=== PATIENT | male | born 1975 | race Caucasian/White ===

== ENCOUNTER 2023-11-23 07:06 | Inpatient (IN) | payer OTHER, SELFPAY ==
--- NOTE | 2023-10-25 12:26 | CM ---
Patient is scheduled for lumbar spine surgery on 11/23/23. Spoke with patient prior to surgery via telephone. Introduced role of the Orthopedic Navigator. Patient reports that he lives with his and six year old daughter in a multi story home.
There are three steps to enter and a flight of steps to the second floor. He currently functions independently. He has no DME and has never had VN services. PCP is Kenneth Toney.
Discussed orthopedic program, post surgical plans and tentative plan for patient to return home when directed by surgeon. Patient is in agreement with tentative plan and will have support from his when he goes home.
Plan: Orthopedic Navigator will remain available to assist with the care of patient and will reassess discharge needs after surgery.
[2023-11-07 07:54] VITALS: BMI 27.6
[2023-11-07 09:04] LABS: Hematocrit 40.3 % (39.0-52.0); Hemoglobin 13.4 g/dL (13.0-18.0); Mean Corp Hgb Conc. 33.3 g/dL (33.0-37.0); Mean Corpuscular Hgb 29.3 pg (27.0-31.0); Mean Corpuscular Volume 88.2 fL (80.0-94.0); Platelet Count 234 10^3/uL (130-400); Red Blood Cell Count 4.57 10^6/uL (4.70-6.10); Red Cell Dist. Width 12.4 % (11.5-14.5); White Blood Cell Count 6.8 10^3/uL (4.8-10.8)
--- NOTE | 2023-11-07 10:16 | HPS.HSE ---
Family Physician
-
Family Physician: Kenneth Toney
Chief Complaint
-
Lumbar spondylolisthesis and stenosis with neurogenic claudication.
History of Present Illness
The patient is a 48 year old male presenting today for lumbar spondylolisthesis and stenosis with neurogenic claudication. The patient reports significant, progressively worsening low back pain which radiates into his bilateral lower
extremities secondary to these diagnoses. He notes that his current pain greatly interferes with his activities of daily living and is overall impacting his quality of life. He has tried and failed multiple conservative treatment measures in the
past for his pain. These conservative treatment measures include activity modification, self therapeutic exercises, epidural steroid injections, medical management with Tylenol, NSAIDs, and medical marijuana as needed, and the application of ice
and/or heat. Recent MRI findings of the lumbar spine confirmed moderate to severe stenosis at L4-L5 with spondylolisthesis. He was determined to be in need of a L4-L5 laminectomy and posterior spinal fusion. He denies any current complaints today
such as chest pain, shortness of breath, palpitations, nausea, vomiting, diarrhea, lightheadedness, dizziness, sore throat, or fever.
Medical History
Past Medical History
Past Medical History: Reports Other
Additional Past Medical History:
1. Lumbar spondylolisthesis and stenosis with neurogenic claudication.
2. Cervical degenerative disc disease, status post C5-C6 ACDF with Dr. Gutierrez 2015.
3. Hyperlipidemia.
4. Probable obstructive sleep apnea.
5. Chronic dry cough.
6. Colon polyps.
7. Rare migraines.
8. Balance difficulties.
9. Osteoarthritis.
10. Anxiety.
11. Daily alcohol.
12. Cannibis dependence.
Past Surgical History: Reports Other
Additional Past Surgical History:
1. C5-C6 ACDF, 2015, by Dr. Josh Gutierrez.
2. Hydrocelectomy.
3. [place] teeth extraction.
4. Colonoscopy.
Social History
Tobacco: Non-smoker
Alcohol: Daily (Reports, on average, drinking 1 glass of wine nightly with dinner. )
Drug: Marijuana (He uses medical marijuana, on average, daily due to ongoing pain. )
Personal:
Living: With Family (in a 2 story home with a basement. )
Family History
Family History: Not pertinent
Allergies / Home Medications
Allergy/Medication List:
Home medications:
1. Cyanocobalamin 1000 mcg p.o. daily.
2. Duloxetine 60 mg p.o. daily.
3. Medical marijuana 1 unit inhaled daily.
4. Percocet 5/325 mg, 1 tablet p.o. every 6 hours as needed.
5. Pravastatin 40 mg p.o. daily.
Allergies: No known allergies.
Review of Systems
-
A 12 point ROS was completed and negative except as noted: Yes
Physical Exam
Vital Signs
Blood pressure 127/73. Heart rate 72. Respirations 18. Pulse ox 98%.
Height 5 feet, 10 inches. Weight 87.4 kg. BMI 27.6.
Physical Exam
General: Well Developed, Well Nourished and No Apparent Distress
HEENT: NormoCephalic, Moist mucous membranes, Atraumatic and PERRLA
Respiratory: Clear
Cardiac: Regular Rhythm
GI: Soft, Non Tender and Non Distended
Musculoskeletal: Other (He does have some weakness with right ankle dorsiflexion which is 4- out of 5. He does walk with a forward flexed posture. )
Skin: Warm and Dry
Neuro: AO x 3 and Nonfocal/grossly intact
Laboratory Results
-
11/07/23 07:47
DIAGNOSTIC STUDIES as of 11/07/2023: Sodium 138. Potassium 5.0. BUN 21. Creatinine 0.7. Glucose 108. Calcium 9.3. AST 32. ALT 27. Albumin 4.1. MRSA screen negative.
EKG 11/07/2023: Normal sinus rhythm.
Impression/Plan
-
CLEARANCES: Primary medical and dental waived.
The patient has stable comorbidities and is medically optimized to proceed to the operating room on 11/23/2023.
IMPRESSION/PLAN:
1. Lumbar spondylolisthesis and stenosis with neurogenic claudication: The patient is in need of a L4-L5 laminectomy and posterior spinal fusion with Dr. Josh Gutierrez on 11/23/2023. The benefits and risks of the procedure have been explained to the
patient. The patient understands these risks and wishes to proceed.
2. DVT prophylaxis: Bilateral sequential compression devices and MARION hose stockings. We will promote frequent and early ambulation as tolerated during admission.
3. Balance difficulties: The patient will be placed on fall precautions post-operatively.
4. The patient will require a back brace post-surgery.
[2023-11-07 12:16] LABS: ALT (SGPT) 27 U/L (0-50); AST (SGOT) 32 U/L (17-59); Albumin 4.1 g/dl (3.5-5.0); Alkaline Phosphatase 61 U/L (38-126); Blood Urea Nitrogen 21 mg/dl (9-20); Calcium 9.3 mg/dl (8.4-10.2); Carbon Dioxide 28 mmol/L (22-30); Chloride 103 mmol/L (98-107); Estimated Creatinine Clearance > 125 ml/min; Glucose 108 mg/dl (70-99); Sodium 138 mmol/L (135-145); Total Bilirubin 0.7 mg/dl (0.2-1.3); Total Protein 6.6 g/dl (6.3-8.2); eGFR > 60.00
[2023-11-07 16:59] VITALS: BMI 27.6
[2023-11-23] VITALS (23 sets, daily range): BP systolic 10–159; BP diastolic 64–124; PULSE 75; O2SAT 98; BMI 27.6
[2023-11-23] MEDS: SKELAXIN 800 MG PO (07:40)
[2023-11-23] MEDS: CELEBREX 200 MG PO (07:40)
[2023-11-23] MEDS: LYRICA 150 MG PO (07:40)
[2023-11-23] MEDS: TYLENOL 1000 MG PO ×3 (07:41→19:53)
[2023-11-23] MEDS: NORMOSOL-R 1000 IV ×2 (08:03→13:35)
[2023-11-23] MEDS: DEMEROL 12.5 MG IV (11:17)
[2023-11-23] MEDS: ZOFRAN 4 MG IV (11:30)
[2023-11-23] MEDS: DILAUDID 0.5 MG IV ×5 (11:31→13:37)
--- NOTE | 2023-11-23 15:00 | PTCARENOTE ---
pt admitted to room 2104 from PACU at 1430. pt oriented to room, call peter, bed controls and plan of care with verbalized understanding. admission database and assessment completed as documented. pt voided in urinal upon arrival. tolerating sips
of water. lumbar dressing intact w/hemovac intact. pt states pain is at a 3 . will observe.
--- NOTE | 2023-11-23 15:02 | W.PN.ORTHO ---
Today's Communication / Plan
-
D/c when clinically stable.
Assessment
.
Distal Motor Intact: Yes
Dressing:
Clean, dry and intact.
Assessment:
Lumbar spondylolisthesis and stenosis with neurogenic claudication s/p L4-L5 laminectomy and posterior spinal fusion w/ Dr Gutierrez 11/23/23
DVT prophylaxis - b/l SCDs/TEDs
+ Hemovac drain - monitor output overnight
Probable obstructive sleep apnea - monitor O2 on continuous pulse ox
- IS
- Consider supplemental O2 if indicated
Balance difficulties - on fall precautions
Cervical degenerative disc disease, status post C5-C6 ACDF with Dr. Gutierrez 2015
Hyperlipidemia
Chronic dry cough
Colon polyps
Rare migraines
Osteoarthritis
Anxiety
Daily alcohol - 1 glass of wine/daily
Cannibis dependence
Plan
.
Surgery / Date: L4-L5 lami/PSF w/ Dr Gutierrez 11/23/23
DVT Prophylaxis: Other (b/l SCDs/TEDs)
Activity:
Out of bed.
PT/OT
Discharge Plan: Home
Subjective
.
.:
Patient resting comfortably in his bed.
Low back pain 3-4/10 but tolerable per patient.
Denies any other new significant complaints.
Vital Signs and Labs
.
Vital Signs and Labs:
Lab Results
11/07/23 07:47
11/07/23 07:47
Temp Pulse Resp BP Pulse Ox
97.5 F 65 18 159/124 99
11/23/23 11:05 11/23/23 12:15 11/23/23 11:45 11/23/23 12:15 11/23/23 12:15
Physical Exam
-
HEENT: No pallor, cyanosis, or jaundice. Throat clear.
NECK: Supple. No JVD.
RESPIRATORY: Lungs clear to auscultation.
CVS: S1, S2 normal. RRR.�
ABDOMEN: Soft, non-tender. No distension.
EXTREMITIES: Strength equal, no calf pain with palpation/dorsiflexion. Calves soft.
LANGUAGE ASSISTANT: AOx3. No focal deficits. hotel maintenance technician grossly intact
[2023-11-23] MEDS: VITAMIN B-12 1000 MCG PO (15:17)
[2023-11-23] MEDS: ANCEF 5 IV ×2 (15:17→22:58)
[2023-11-23] MEDS: ULTRAM 50 MG PO ×2 (15:17→21:31)
[2023-11-23] MEDS: PRAVACHOL 40 MG PO (15:18)
[2023-11-23] MEDS: ROXICODONE 10 MG PO ×2 (16:36→22:56)
[2023-11-23] MEDS: ROXICODONE 5 MG PO (19:52)
[2023-11-23] MEDS: SENOKOT 17.1999999999999993 MG PO (19:53)
[2023-11-23] MEDS: COLACE 100 MG PO (19:53)
[2023-11-23] MEDS: CYMBALTA DELAYED RELEASE 60 MG PO (21:31)
[2023-11-23] MEDS: FLUSH (NSS) 2 FLUSH IV (22:57)
[2023-11-24] MEDS: ROXICODONE 5 MG PO (01:19)
[2023-11-24] MEDS: TYLENOL 1000 MG PO ×3 (01:19→14:23)
[2023-11-24] MEDS: ROXICODONE 10 MG PO ×3 (02:19→11:25)
[2023-11-24 03:10] VITALS: BP 141/87
[2023-11-24] MEDS: ULTRAM 50 MG PO ×2 (03:29→10:12)
--- NOTE | 2023-11-24 03:40 | PTCARENOTE ---
Addendum entered by Noemi Hammond RN 11/24/23 05:28:
0430 Pt. c/o 8/10 lumbar into R hip pain despite repositioning self, and scheduled/PRN medication. Attending, Dr. Gutirerez, contacted and telephone verbal orders received to give pt. Decadron 10mg IV and Morphine 2mg IV stat. Medication administered per
orders. Will monitor.
Original Note:
Pt. c/o 9/10 lumbar into R hip pain around 0200. Unable to get ahold of ortho group at that time. House COMPUTER SYSTEMS DESIGN ANALYST contacted and instructed to give pt. the prescribed Oxycodone 10mg PO early. At time of writing pt. still uncomfortable, trying position
changes to relieve pain, and found that reclining in chair was the most comfortable option at this time. Pt. states pain is 'manageable' at this time while sitting in the chair. Will follow up with ortho when able.
[2023-11-24] MEDS: DECADRON 10 MG IV (04:55)
[2023-11-24] MEDS: MORPHINE SULFATE 2 MG IV (04:56)
[2023-11-24] MEDS: FLUSH (NSS) 2 FLUSH IV (04:59)
[2023-11-24 05:42] LABS: Hematocrit 39.9 % (39.0-52.0); Hemoglobin 13.8 g/dL (13.0-18.0)
[2023-11-24 06:03] LABS: Blood Urea Nitrogen 17 mg/dl (9-20); Estimated Creatinine Clearance > 125 ml/min; Glucose 117 mg/dl (70-99)
[2023-11-24 06:04] LABS: Calcium 9.4 mg/dl (8.4-10.2); Carbon Dioxide 24 mmol/L (22-30); Chloride 104 mmol/L (98-107); Potassium 4.5 mmol/L (3.5-5.1); Sodium 137 mmol/L (135-145); eGFR > 60.00
[2023-11-24 07:15] VITALS: BP 192/102
--- NOTE | 2023-11-24 07:52 | W.DS.TRANS ---
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
-
Discharge Instructions:
Sleep Apnea Risk Intermediate
Discharge Diagnosis/Procedures Lumbar spondylolisthesis and stenosis with
neurogenic claudication s/p L4-L5 laminectomy
and posterior spinal fusion w/ Dr Gutierrez 11/23/23
Diet Regular
Activity As tolerated
Additional Activity No heavy lifting >10 lbs
Driving Restrictions Not until seen by your Dr
Bathing Restrictions OK to shower in 4 days
Instructions:
Stand-Alone Forms: [facility]
Changes to Home Medications: No
Discharge Medications:
DC Medications w/original date entered in [facility]
cyanocobalamin (vitamin B-12) 1,000 mcg tablet 1,000 mcg PO DAILY Supplement 06/10/15
Medical Marijuana 1 unit inhalation DAILY Pain 11/03/23
oxycodone-acetaminophen 5 mg-325 mg tablet 1 tab PO Q6H PRN pain 11/03/23
pravastatin 40 mg tablet 40 mg PO DAILY High Cholesterol 11/03/23
duloxetine 60 mg capsule,delayed release 60 mg PO DAILY Neurological Condition 11/07/23
Home Medication Changes
Pending Results: No
--- NOTE | 2023-11-24 07:53 | W.PN.SP ---
Today's Communication / Plan
-
s/p lami fusion
Pain control
Will call in yesi and sami to his pharmacy and muscle relaxer.
Flexeril now
F/u in 2 weeks
Subjective / Objective
Subjective Data
PT had a little bit of tough night
Has some neuro issues, with shaking in his leg. His right thigh hurts
Denies weakness
Has some pre-existing neuro issues.
Reviewed xrays, screws not medial. L4-5 wouldn't typically affect hip. Most of our decompression was left sided. His left side feels good
Likely inflammatory
Was taking a fair amount of pain meds 2 months prior to surgery including oxycodone . Drinks wine daily and uses THC inhalant.
Objective Data
Vital Signs
Temp Pulse Resp BP Pulse Ox
97.3 F 67 16 141/87 96
11/24/23 03:10 11/24/23 03:10 11/24/23 03:10 11/24/23 03:10 11/24/23 03:10
Intake and Output
11/23/23 11/24/23 11/25/23
06:59 06:59 06:59
Intake Total 3160 / 3160
Output Total 2150 / 2150
Balance 1010 / 1010
Intake:
Oral fluids 2160 / 2160
IV fluids (Total) 1000 / 1000
normosol 700 / 700
Output:
Drain Output (Total) 50 / 50
Back Hemovac 50 / 50
Urine, Voided 2099 / 2099
Other:
Number of approximated MODERATE 1
amounts of urine
Lab Data
11/24/23 05:02
11/24/23 05:02
Physical Exam
-
has some shakes, diaphoretic
Right leg trembling. Ankle DF 4-/5 secondary to pain. Holds it off ground but can walk
--- NOTE | 2023-11-24 08:09 | W.PN.SP ---
Today's Communication / Plan
-
Will get MRI of ceervical and thoracic
Subjective / Objective
Subjective Data
Pt seems more spastic than before
Had cervical myelopathy
Objective Data
Vital Signs
Temp Pulse Resp BP Pulse Ox
97.6 F 72 18 192/102 99
11/24/23 07:15 11/24/23 07:15 11/24/23 07:15 11/24/23 07:15 11/24/23 07:15
Intake and Output
11/23/23 11/24/23 11/25/23
06:59 06:59 06:59
Intake Total 3160 / 3160
Output Total 2150 / 2150
Balance 1010 / 1010
Intake:
Oral fluids 2160 / 2160
IV fluids (Total) 1000 / 1000
normosol 700 / 700
Output:
Drain Output (Total) 50 / 50
Back Hemovac 50 / 50
Urine, Voided 2099 / 2100
Other:
Number of approximated MODERATE 1
amounts of urine
Lab Data
11/24/23 05:02
11/24/23 05:02
Physical Exam
-
clonus
+ patino
[2023-11-24] MEDS: FLEXERIL 10 MG PO ×2 (08:16→14:23)
[2023-11-24] MEDS: COLACE 100 MG PO (08:17)
[2023-11-24] MEDS: VITAMIN B-12 1000 MCG PO (08:17)
[2023-11-24] MEDS: PRAVACHOL 40 MG PO (08:17)
[2023-11-24] MEDS: SENOKOT 17.1999999999999993 MG PO (08:17)
--- NOTE | 2023-11-24 08:39 | CM ---
Reviewed chart and held rounds with PT, OT and RN. Patient had planned lumbar spine surgery with Dr. Gutierrez on 11/22. Met with patient at bedside. Confirmed information previously obtained for assessment and discussed discharge plans. Patient continues
to plan to return home at discharge. He will have support from his when he goes home.
Patient has no DME.
Patient will use [facility] pharmacy for discharge prescriptions.
[2023-11-24] MEDS: NEURONTIN 200 MG PO (09:39)
[2023-11-24 11:27] VITALS: BP 148/89
--- NOTE | 2023-11-24 12:13 | PTCARENOTE ---
Patient experiencing pain in his right upper leg and hip at a 9 out of 10.Patient states that it feels muscular like maybe he slept wrong.Dr. Gutierrez was here to see him early this morning and ordered Flexeril which seemed to help him.Patient went down
to MRI but was unable to complete all the imaging secondary to the varghese in his right leg.Roxicodone 10mg given.Dr Gutierrez notified and [facility] to see if they want him to complete the study.
--- NOTE | 2023-11-24 12:58 | W.PN.SP ---
Today's Communication / Plan
-
IF passes PT, ok for D/c.
NEurontin and muscle relaxer and steroid called in.
LEft him a message. CAn go to ER over weekend at [place] if any changes
Subjective / Objective
Subjective Data
Reviewed MRI cervical. No critical stenosis . Between cervical and lumbar mri from [place], no evidence of thoracic stensois . Would be uncommon on unvisualized levels.
He is doing better on muscle relaxer apparently. He had cervcial myelopathy previously with some upper motor changes. He is doing well in PT per report
Objective Data
Vital Signs
Temp Pulse Resp BP Pulse Ox
98.1 F 82 18 148/89 98
11/24/23 11:27 11/24/23 11:27 11/24/23 11:27 11/24/23 11:27 11/24/23 11:27
Intake and Output
11/23/23 11/24/23 11/25/23
06:59 06:59 06:59
Intake Total 3160 / 3160
Output Total 2150 / 2150
Balance 1010 / 1010
Intake:
Oral fluids 2160 / 2160
IV fluids (Total) 1000 / 1000
normosol 700 / 700
Output:
Drain Output (Total) 50 / 50
Back Hemovac 50 / 50
Urine, Voided 2099 / 2099
Other:
Number of approximated MODERATE 1
amounts of urine
Lab Data
11/24/23 05:02
11/24/23 05:02
[2023-11-24 13:15] VITALS: BP 149/93; PULSE 73; O2SAT 98
--- NOTE | 2023-11-24 14:29 | W.PN.ORTHO ---
Today's Communication / Plan
-
D/c today since now clinically stable, did well w/ PT and OT.
Assessment
.
Distal Motor Intact: Yes
Dressing:
Small amount of old incisional bleeding.
Assessment:
Lumbar spondylolisthesis and stenosis with neurogenic claudication s/p L4-L5 laminectomy and posterior spinal fusion w/ Dr Gutierrez 11/23/23
DVT prophylaxis - b/l SCDs/TEDs
+ Hemovac drain - drain output minimal overnight - d/c drain
Reported post-surgical R thigh pain - improving w/ addition of steroid, muscle relaxant, and Neurontin
- Pain likely exacerbated due to daily alcohol, opioid dependence over last several months, and cannabis dependence
- MRI w/o critical stenosis of cervical spine. No evidence of thoracic stenosis on May MRI
- Continue pain medication regimen upon d/c
Probable obstructive sleep apnea - O2 stable on RA
- IS
- Supplemental O2 thankfully not indicated
Balance difficulties - on fall precautions
Cervical degenerative disc disease, status post C5-C6 ACDF with Dr. Gutierrez 2015
Hyperlipidemia
Chronic dry cough
Colon polyps
Rare migraines
Osteoarthritis
Anxiety
Daily alcohol - 1 glass of wine/daily
Cannibis dependence
Plan
.
Surgery / Date: L4-L5 lami/PSF w/ Dr Gutierrez 11/23/23
DVT Prophylaxis: Other (b/l SCDs/TEDs)
Activity:
Out of bed.
PT/OT
Discharge Plan: Home
Subjective
.
.:
Patient examined standing up this AM.
Significant pain overnight; however, improvement noted w/ addition of muscle relaxant, steroid, and Neurontin.
Denies any other new significant complaints.
AM labs stable. Eager for potential d/c today.
Vital Signs and Labs
.
Vital Signs and Labs:
Lab Results
11/24/23 05:02
11/24/23 05:02
Temp Pulse Resp BP Pulse Ox
98.1 F 82 18 148/89 98
11/24/23 11:27 11/24/23 11:27 11/24/23 11:27 11/24/23 11:27 11/24/23 11:27
Physical Exam
-
HEENT: No pallor, cyanosis, or jaundice. Throat clear.
NECK: Supple. No JVD.
RESPIRATORY: Lungs clear to auscultation.
CVS: S1, S2 normal. RRR.�
ABDOMEN: Soft, non-tender. No distension.
EXTREMITIES: Strength equal, no calf pain with palpation/dorsiflexion. Calves soft.
CONCRETE FLOAT MAKER: AOx3. No focal deficits. credit and collections representative grossly intact
--- NOTE | 2023-11-24 14:48 | W.DS.TRANS ---
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
-
Discharge Instructions:
Sleep Apnea Risk Intermediate
Discharge Diagnosis/Procedures Lumbar spondylolisthesis and stenosis with
neurogenic claudication s/p L4-L5 laminectomy
and posterior spinal fusion w/ Dr Gutierrez 11/23/23
Diet Regular
Activity As tolerated
Additional Activity No heavy lifting >10 lbs
Driving Restrictions Not until seen by your Dr
Bathing Restrictions OK to shower in 4 days
Instructions:
Stand-Alone Forms: [facility]
Changes to Home Medications: Yes
Discharge Medications:
DC Medications w/original date entered in [facility]
cyanocobalamin (vitamin B-12) 1,000 mcg tablet 1,000 mcg PO DAILY Supplement 06/10/15
pravastatin 40 mg tablet 40 mg PO DAILY High Cholesterol 11/03/23
duloxetine 60 mg capsule,delayed release 60 mg PO DAILY Neurological Condition 11/07/23
Medical Marijuana 1 unit inhalation DAILY PRN Pain #1 unit 11/24/23
Saccharomyces boulardii 250 mg capsule (Florastor) 250 mg PO BID #10 caps 11/24/23
cephalexin 500 mg capsule 500 mg PO QID #20 caps 11/24/23
docusate sodium 100 mg capsule 100 mg PO BID #30 caps 11/24/23
gabapentin 100 mg capsule 200 mg (2 x 100 mg) PO TID neuropathic pain #30 caps 11/24/23
ondansetron HCl 4 mg tablet 4 mg PO Q6H PRN nausea and vomiting #30 tabs 11/24/23
oxycodone-acetaminophen 10 mg-325 mg tablet (Percocet) 0.5 - 1 tab PO Q6H PRN moderate-severe pain #150 tabs 11/24/23
prednisone 10 mg tablet 40 mg (4 x 10 mg) PO TAPER #30 tabs 11/24/23
sennosides 8.6 mg tablet (Senna Laxative) 17.2 mg (2 x 8.6 mg) PO BID #30 tabs 11/24/23
tizanidine 2 mg capsule 2 mg PO Q8H PRN muscle spasticity #30 caps 11/24/23
Home Medication Changes
Saccharomyces boulardii 250 mg capsule (Florastor) 250 mg PO BID #10 caps 11/24/23
cephalexin 500 mg capsule 500 mg PO QID #20 caps 11/24/23
docusate sodium 100 mg capsule 100 mg PO BID #30 caps 11/24/23
gabapentin 100 mg capsule 200 mg (2 x 100 mg) PO TID neuropathic pain #30 caps 11/24/23
ondansetron HCl 4 mg tablet 4 mg PO Q6H PRN nausea and vomiting #30 tabs 11/24/23
oxycodone-acetaminophen 10 mg-325 mg tablet (Percocet) 0.5 - 1 tab PO Q6H PRN moderate-severe pain #150 tabs 11/24/23
prednisone 10 mg tablet 40 mg (4 x 10 mg) PO TAPER #30 tabs 11/24/23
sennosides 8.6 mg tablet (Senna Laxative) 17.2 mg (2 x 8.6 mg) PO BID #30 tabs 11/24/23
tizanidine 2 mg capsule 2 mg PO Q8H PRN muscle spasticity #30 caps 11/24/23
Pending Results: No
[2023-11-24 15:25] VITALS: BP 159/100
== END 2023-11-24 15:37 | disposition home or self-care (01) | DRG 460 ==
LOC: 2 SOUTH 07:06
PROVIDERS: Physician Assistant; ADMITTING PHYSICIAN Orthopaedic Surgery Orthopaedic Surgery of the Spine; FAMILY PHYSICIAN Family Medicine
PROC: 01NB0ZZ Release Lumbar Nerve, Open Approach (ICD-10-PCS; 2023-11-23)
PROC: 0SG00K1 Fusion of Lumbar Vertebral Joint with Nonautologous Tissue Substitute, Posterior Approach, Posterior Column, Open Approach (ICD-10-PCS; 2023-11-23)
DX: M48.062 Spinal stenosis, lumbar region with neurogenic claudication (principal); F12.20 Cannabis dependence, uncomplicated; E78.5 Hyperlipidemia, unspecified; M43.16 Spondylolisthesis, lumbar region; M50.322 Other cervical disc degeneration at C5-C6 level; G43.909 Migraine, unspecified, not intractable, without status migrainosus; G47.33 Obstructive sleep apnea (adult) (pediatric); M19.90 Unspecified osteoarthritis, unspecified site; F41.9 Anxiety disorder, unspecified; F10.90 Alcohol use, unspecified, uncomplicated; R05.8 Other specified cough; R26.89 Other abnormalities of gait and mobility; M79.651 Pain in right thigh; Z79.899 Other long term (current) drug therapy; Z98.1 Arthrodesis status
CPT/HCPCS: 36415; 72100; 72141; 76000; 80048; 80053; 85014; 85018; 85027; 87070; 93005; 97116; 97162; 97166; C1713; C1776